=== PATIENT | female | born 1985 | race Caucasian/White ===

== ENCOUNTER 2018-09-01 12:55 | Emergency (ER) | payer BC ==
[~2018-09-01] VITALS: Ht 157.5 cm; Wt 71.2 kg
[~2018-09-01 12:55] MED LIST: ALBUTEROL2.5 MG/3 M IH; NOHOMEMEDICATIONS; PREDNISONE 20 M20 M1 PO; VENTOLIN HFA 1818 GM INH; ZPAK PO
[2018-09-01 13:46] LABS: INFLUENZA A ANTIGEN None Detected (None Detect); INFLUENZA B ANTIGEN None Detected (None Detect)
[2018-09-01] MEDS ORDERED: LEVAQUIN 500 M500 M2 PO (15:27)
[2018-09-01] MEDS ORDERED: VENTOLIN HFA 1818 GM INH (15:31)
[2018-09-01] MEDS ORDERED: ACETAMINOPHEN-1 EAC1 PO (15:31)
[2018-09-01 15:44] VITALS: BP 122/75
== END 2018-09-01 15:44 | disposition home or self-care (01) ==
LOC: M.ERS 12:55
PROVIDERS: Nurse Practitioner Family
DX: J18.9 Pneumonia, unspecified organism (principal); J45.909 Unspecified asthma, uncomplicated; Z88.0 Allergy status to penicillin; Z88.8 Allergy status to other drugs, medicaments and biological substances; Z98.890 Other specified postprocedural states

== ENCOUNTER 2019-01-29 07:21 | Emergency (ER) | payer BC ==
[~2019-01-29] VITALS: Ht 157.5 cm; Wt 68.0 kg
[~2019-01-29 07:21] MED LIST changes: +ACETAMINOPHEN-1 EAC1 PO; +LEVAQUIN 500 M500 M2 PO
[2019-01-29 07:26] VITALS: BP 125/87
[2019-01-29] MEDS ORDERED: ZPAK PO (07:40)
== END 2019-01-29 07:45 | disposition home or self-care (01) ==
LOC: M.ERS 07:21
DX: H66.92 Otitis media, unspecified, left ear (principal); J45.909 Unspecified asthma, uncomplicated; Z91.048 Other nonmedicinal substance allergy status; Z88.0 Allergy status to penicillin; Z98.890 Other specified postprocedural states; Z90.11 Acquired absence of right breast and nipple

== ENCOUNTER 2021-04-04 11:36 | Emergency (ER) | payer OTHER ==
[~2021-04-04] VITALS: Ht 157.5 cm; Wt 66.7 kg
[2021-04-04] MEDS ORDERED: EXCEDRIN MIGRA1 EAC1 PO (11:51)
[2021-04-04 12:07] LABS: URINE BLOOD 1+ (Negative); URINE CLARITY CLEAR; URINE COLOR YELLOW; URINE GLUCOSE-RANDOM 1+ (Negative); URINE KETONES NEGATIVE (Negative); URINE LEUKOCYTES-REFLEX NEGATIVE (Negative); URINE PROTEIN 1+ (Negative); URINE SPECIFIC GRAVITY 1.015 (1.005-1.030)
[2021-04-04 12:16] LABS: BACTERIA-REFLEX 1-9 Few /HPF (None Seen); ICTOTEST (BILI CONFIRMATORY) Positive (Negative); SQUAMOUS 0-3 Few /LPF (0-3); URINE BILIRUBIN 1+ (Negative); URINE NITRITE-REFLEX POSITIVE (Negative); URINE WBC-REFLEX 0-5 Rare /HPF (0-5)
[2021-04-04 12:17] LABS: AMORPHOUS URATES Many /LPF (None Seen); CASTS None Seen /LPF (None Seen); CRYSTALS None Seen /LPF (None Seen); URINE RBC 3-10 Few /HPF (0-2)
[2021-04-04 12:40] LABS: ABSOLUTE BASOPHILS 0.1 thou/uL (0.0-0.2); ABSOLUTE EOSINOPHILS 0.3 thou/uL (0.0-0.7); ABSOLUTE LYMPHOCYTES 1.6 thou/uL (0.8-5.3); ABSOLUTE MONOCYTES 0.5 thou/uL (0.0-1.2); ABSOLUTE NEUTROPHILS 4.8 thou/uL (1.6-8.1); BASOPHILS 1.1 %; EOSINOPHILS 3.5 %; HEMATOCRIT 35.2 % (37.0-47.0); HEMOGLOBIN 11.7 gm/dL (12.0-15.0); LYMPHOCYTES 21.9 %; MCH 27.9 pg (26.0-34.0); MCHC 33.2 g/dL (28.0-37.0); MCV 84.1 fL (80.0-100.0); MONOCYTES 7.1 %; NUCLEATED RBCS 0 /100WBC; PLATELET COUNT* 160 thou/uL (150-400); POLYS 66.4 %; RBC 4.19 mil/uL (4.20-5.00); RDW-CV 14.8 % (10.5-14.5); WBC 7.2 thou/uL (4.0-11.0)
[2021-04-04 12:44] LABS: CALCIUM 8.2 mg/dL (8.5-10.1); CREATININE 0.6 mg/dL (0.6-1.3)
[2021-04-04 12:49] LABS: ALBUMIN 3.6 g/dL (3.4-5.0); TOTAL BILIRUBIN 0.3 mg/dL (<0.1-1.0); TOTAL PROTEIN 7.1 g/dL (6.4-8.2)
[2021-04-04] MEDS ORDERED: ZOFRAN ODT4 MG PO ×2 (13:22→13:55)
[2021-04-04] MEDS ORDERED: IBU600 MG PO ×2 (13:22→13:55)
[2021-04-04] MEDS ORDERED: FLEXERIL PO ×2 (13:22→13:55)
[2021-04-04] MEDS ORDERED: KEFLEX250 MG PO ×2 (13:22→13:55)
[2021-04-04 13:56] VITALS: BP 134/68
== END 2021-04-04 13:56 | disposition home or self-care (01) ==
LOC: M.ERS 11:36
PROVIDERS: Physician Assistant
DX: N39.0 Urinary tract infection, site not specified (principal); D64.9 Anemia, unspecified; N20.0 Calculus of kidney; K38.1 Appendicular concretions; J45.909 Unspecified asthma, uncomplicated; Z88.0 Allergy status to penicillin; Z88.8 Allergy status to other drugs, medicaments and biological substances; Z98.890 Other specified postprocedural states; Z87.01 Personal history of pneumonia (recurrent)